=== PATIENT | female | born 1985 | race African-American/Black ===

== ENCOUNTER 2022-10-02 04:32 | Emergency (ER) | payer MEDICAID ==
[~2022-10-02] VITALS: Ht 170.2 cm; Wt 55.0 kg
[2022-10-02 05:01] VITALS: BP 124/81
[2022-10-02] MEDS ORDERED: KETOROLAC 60MG/2ML VIAL IM ONE (06:15)
[2022-10-02] MEDS ORDERED: BENZ200C52 MT (07:25)
[2022-10-02] MEDS ORDERED: IBUP-2028 MT (07:25)
== END 2022-10-02 07:49 | disposition home or self-care (01) ==
LOC: ER 04:32
DX: R07.89 Other chest pain (principal)
CPT/HCPCS: 71045; 93005; 96372; 99283; J1885